=== PATIENT | female | born 1970 | race Caucasian/White ===

== ENCOUNTER 2019-11-22 07:29 | Outpatient (REF) | payer OTHER, SELFPAY ==
[2019-11-22 07:53] LABS: COVID-19 Test Negative (Negative)
== END 2019-11-22 07:30 | disposition home or self-care (01) ==
LOC: HO.LAB 07:29
PROVIDERS: PCP Internal Medicine; Visit Provider Internal Medicine
DX: Z20.828 Contact with and (suspected) exposure to other viral communicable diseases (principal)
CPT/HCPCS: 87635

== ENCOUNTER 2020-05-23 15:40 | Outpatient (REF) | payer OTHER, SELFPAY | END 2020-05-23 15:41 | disposition home or self-care (01) | LOC: HO.LAB 15:40 | PROVIDERS: Visit Provider Internal Medicine | DX: Z20.822 Contact with and (suspected) exposure to COVID-19 (principal) | CPT/HCPCS: C9803; U0003; U0005 ==

== ENCOUNTER → 2021-06-25 14:56 | Outpatient (BNVA) | payer OTHER, SELFPAY | PROVIDERS: PCP Internal Medicine; Visit Provider Nurse Practitioner Family | DX: Z13.89 Encounter for screening for other disorder (principal) ==

== ENCOUNTER 2021-09-04 06:17 | Outpatient (REF) | payer OTHER, SELFPAY ==
--- NOTE | ~2021-09-04 | FL_ITS ---
EXAMINATION: XR FLUOROSCOPY WITH IMAGES CLINICAL INFORMATION: M46.1 - Sacroiliitis, not elsewhere classified COMPARISON: None. TECHNIQUE: Fluoroscopy performed by pain management physician. Fluoroscopy time: 0.5 minutes. Cumulative Dose: 9.05 mGy. DAP: 0.102 mGy-cm2. Images: 4. FINDINGS: There are bilateral spinal needles in the mid left and right sacroiliac joints. FL/FL guidance in treatment room IMPRESSION: Fluoroscopy for pain management procedures.
== END 2021-09-04 06:18 | disposition home or self-care (01) ==
LOC: HO.RADIR 06:17
PROVIDERS: Visit Provider Internal Medicine
DX: M46.1 Sacroiliitis, not elsewhere classified (principal); M53.3 Sacrococcygeal disorders, not elsewhere classified
CPT/HCPCS: 27096; J1040

== ENCOUNTER 2021-11-08 03:41 | Emergency (ER) | payer OTHER, SELFPAY ==
--- NOTE | ~2021-11-08 | XR_ITS ---
EXAMINATION: XR CHEST CLINICAL INFORMATION: Shortness of breath COMPARISON: None TECHNIQUE: 2 views of the chest were obtained. FINDINGS: No significant abnormality is noted involving the heart, lungs, mediastinum, bony thorax or soft tissues. XR/XR chest 2V IMPRESSION: Unremarkable examination.
[2021-11-08 03:56] VITALS: BP 119/77; PULSE 86; RESP 16; TEMP 37.7; O2SAT 99; BMI 35.4
[2021-11-08 04:23] LABS: COVID-19 Test Negative (Negative); IDNOW Serial# 16C4AD1C
[2021-11-08 06:46] VITALS: BP 133/66; PULSE 87; TEMP 36.7; O2SAT 100
--- NOTE | 2021-11-08 08:04 | ED.URI ---
HPI - URI/Sore Throat General Chief Complaint: Upper Respiratory Symptoms Stated Complaint: difficulty breathing Time Seen by Provider: 11/08/21 08:04 History of Present Illness HPI Narrative: Patient is a 51-year-old female presents today with having coughing congestion respiratory symptoms. The history of lupus. Presented today with having symptoms for the last 3 days. Patient is vaccinated for COVID. Feels very congested have a postnasal drip. Patient from home. Never had any history of asthma. Never been intubated in the past. Positive history of sleep apnea on CPAP. Related Data Home Medications Medication Instructions Recorded Confirmed cyclobenzaprine 10 mg tablet 10 mg PO TID PRN 06/25/21 ibuprofen 600 mg tablet 600 mg PO TID PRN 06/25/21 loratadine 10 mg tablet 10 mg PO DAILY 06/25/21 fluticasone propionate 50 1 spray intranasal BID 07/23/21 mcg/actuation nasal spray,suspension Previous Rx's Medication Instructions Recorded gabapentin 300 mg capsule 300 mg PO BID pain 30 days #90 caps 09/18/21 azithromycin 250 mg tablet See Rx Instructions PO .COMPLEX 11/08/21 upper resp infection #6 tabs tamsulosin 0.4 mg capsule (Flomax) 0.4 mg PO DAILY #7 caps 11/08/21 Allergies Allergy/AdvReac Type Severity Reaction Status Date / Time Sulfa (Sulfonamide Allergy Unknown HIVES Verified 09/04/21 08:07 Antibiotics) [SULFA (SULFONAMIDE ANTIBIOTICS)] Review of Systems Review of Systems: Positive coughing congestion upper respiratory symptoms Yes all other systems are reviewed and are negative PMFSH Past Medical History Medical History Family history of colonic polyps History of pulmonary embolism Iron deficiency anemia Menorrhagia Presence of silicone breast implant Rosacea Thyroid nodule Surgical History H/O breast reconstruction H/O tubal ligation History of cholecystectomy History of splenectomy Incisional hernia of anterior abdominal wall without obstruction or gangrene Other specified postprocedural states Social History Social History Advance Directives: Yes Advance Directives Information Provided: Yes Advance Directives on File: No Physical Exam Vital Signs: Vital Signs: Last Vital Signs Temp 98.1 F 11/08/21 06:46 Pulse 87 11/08/21 06:46 Resp 16 11/08/21 03:56 BP 133/66 11/08/21 06:46 Pulse Ox 100 11/08/21 06:46 O2 Del Method 11/08/21 06:46 BMI result Body Mass Index 35.4 Appearance: Alert. Oriented X3. No acute distress. Eyes: Pupils equal, round and reactive to light. ENT: Pharynx normal. Neck: Normal inspection. Neck supple. No lymph nodes noted. No crepitus CVS: Normal heart rate and rhythm. Pulses normal. Normal S1 and S2 Respiratory: No respiratory distress. Breath sounds normal. No Wheezing. No rales Abdomen: Soft and nontender. No rigidity. No distention. good BS x4 Skin: Skin warm and dry. Normal skin color. Normal skin turgor. Extremities: No lower extremity edema. Neurovascular intact to all extremities. No Lacerations. No Rash Neuro: Oriented X 3. No motor deficit. No sensory deficit. Moving all extermities. No slurred speech MDM - URI/Sore Throat MDM Narrative Medical decision making narrative: O2 sats 99% on room air. Lungs are clear. Chest x-ray negative for infiltrate. We will go ahead and start patient on a Z-Jake. Follow up on an outpatient basis. Chuck Heck for coughing. In stable condition. Differential Diagnosis Differential diagnosis: Likely upper respiratory infection Medical Records Attestation: I reviewed the patient's medical records. Lab Data Attestation: I reviewed the patient's lab results. Labs: Lab Results 11/08/21 Range/Units 04:03 COVID-19 ([facility]) Negative (Negative) COVID-19 Clin Com See Note Discharge Plan Discharge Clinical Impression: Upper respiratory infection Patient Disposition: Home, Self-Care Instructions: Upper Respiratory Infection (ED) Prescriptions: New azithromycin 250 mg tablet See Rx Instructions PO .COMPLEX Qty: 6 0RF Rx Instructions: take 500 mg today (day 1), then 250 mg for 4 days (days 2-5) tamsulosin [Flomax] 0.4 mg capsule 0.4 mg PO DAILY Qty: 7 0RF No Action gabapentin 300 mg capsule 300 mg PO BID 30 Days Qty: 90 1RF Rx Instructions: Take 300 mg during the day and 600 mg at bedtime ibuprofen 600 mg tablet 600 mg PO TID PRN cyclobenzaprine 10 mg tablet 10 mg PO TID PRN loratadine 10 mg tablet 10 mg PO DAILY fluticasone propionate 50 mcg/actuation spray,suspension 1 spray intranasal BID Referrals: Ashish Rivero MD [Primary Care Provider] - 2 days
[2021-11-08 08:21] VITALS: BP 126/73; PULSE 86; RESP 16; TEMP 36.4; O2SAT 98
--- NOTE | 2021-11-08 08:26 | PC.NURSE ---
patient a/ox4 . went over discharge instructions as ordered by provider . patient has no questions at this time . patient to follow up with primary care .
== END 2021-11-08 08:27 | disposition home or self-care (01) ==
PROVIDERS: Emergency Provider Emergency Medicine Emergency Medical Services; PCP Internal Medicine Medical Oncology
DX: J06.9 Acute upper respiratory infection, unspecified (principal); R06.02 Shortness of breath; Z20.822 Contact with and (suspected) exposure to COVID-19
CPT/HCPCS: 71046; 87635; 99284

== ENCOUNTER → 2022-03-19 13:32 | Outpatient (BNVA) | payer OTHER, SELFPAY | PROVIDERS: PCP Internal Medicine Medical Oncology; Visit Provider Nurse Practitioner Family | DX: Z13.89 Encounter for screening for other disorder (principal) ==

== ENCOUNTER 2023-03-08 13:45 | Outpatient (AMB) | payer BC, SELFPAY ==
--- NOTE | 2023-03-08 13:47 | MHC.OFFVIS ---
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 Patient was last seen in our office in March, and was prescribed gabapentin 300 mg in am and 600 mg at bedtime. She reports this has been working well for a while but since her back pain has progressed, she does not get complete pain relief. Reports waking up between [id number] at night due to pain. She completed several courses of PT and HEP without pain reduction and no improvement in her functioning. 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 Low back pain radiates into her left buttock and left leg laterally and posteriorly with intermittent heaviness, numbness and tingling in her leg and foot. Lying down and prolonged sitting worsens her pain, whereas standing alleviates her pain. She has mild limping on her left side due to leg pain. Patient reports left leg pain is worse than back pain. Pain is rated at 7/10. She completed lumbar spine MRI on 02/24/23 at [facility] per her PCP and has pending Neurosurgery referral at [facility]. Patient is interested to increase her gabapentin dose while she awaits her neurosurgical evaluation. Denies any fever, abdominal or groin pain, foot drop, bladder or bowel incontinence or saddle anesthesia. PRIOR 03/19/22: Patient presents today for follow up regarding increasing lower back pain with radiation to her lower extremities, worse on the right. Patient was last seen in our office by Dr. Zepeda with short term pain relief after therapeutic bilateral SIJ injections. Patient reports her back pain has been worsening with walking, prolonged sitting, standing, changing positions, or bending forward. She reports radiation of pain into her right lower extremity anteriorly with numbness and tingling in her thighs and feet. Patient reports occasional weakness of right lower extremity and has been having intermittent urine incontinence since last year. Patient cannot pursue formal physical therapy at this time due to significant pain. She is trying to stay active and loose weight but this has been difficulty for her in the constant state of pain. Pain interferes with her daily activities, sleep and social interactions. Denies any fever, abdominal or groin pain, bowel incontinence or saddle anesthesia. PRIOR Dr. Zepeda 09/07/21: Patient is a 51-year-old female presenting for a follow-up after Diagnostic Bilateral SIJ injection. Patient reports 100% pain relief for eight hours following the injection. Unfortunately, she does not report any sustained relief from the steroid portion of the injection. Past Procedures: 09/04/21: Diagnostic Bilateral SIJ Injection with Depo 40 (Each side) ? 100% pain relief for 8 hours. PRIOR: Patient is a pleasant 50 years old female who presents today for an initial evaluation of chronic lower back pain. Patient states her pain started about 10 years ago and has been on and off. She also reports that her pain has been worsening 6 years ago when she slipped on ice and fell. Her pain is mostly axial but also radiates to her lower extremities without specific dermatome distribution with significant numbness and tingling in her both lower legs and feet. Patient states she has lost some sensation in her left lower leg and incisional area after left bunionectomy and has been walking with favoring right side mainly due to increased neuropathy and paresthesia sensations in her LLE. Pain described as dull, sore, hurting, aching, heavy, tiring and exhausting. Her back pain is increased with movements, prolonged standing, walking, and partially relieved with rest, heating pad, and medications. Denies previous back surgery or injections. She has tried physical therapy after the fall 6 years ago without improvement in her symptoms. Patient has been taking ibuprofen, cyclobenzaprine and Tylenol with partial relief. She states the pain is interfering with sleep, activities, mood, quality of life, daily living and she cannot function normally. Patient denies any fever, chills, dyspnea, chest pain, abdominal pain, weight loss,? bladder/bowel dysfunction or saddle anesthesia. She reports intermittent weakness. Patient's exam consistent with bilateral SIJ pain that was easily reproduced with provocative maneuvers. She denies previous SIJ injections. Patient reports she is currently unable to participate in formal PT due to pain but will try gentle SIJ stretching exercising at home. Patient also states she had 3 vaginal deliveries over 20 years ago and her first child weighed 10 lbs at and 2 other between 7 and 8 lbs. Patient also states she has systemic lupus erythematosus that has been under good control without medication. She is in the process of establishing care with new internship. [facility] Medical History Presence of silicone breast implant Systemic lupus erythematosus Rosacea Iron deficiency anemia History of pulmonary embolism Menorrhagia Family history of colonic polyps Thyroid nodule Obstructive sleep apnea treated with continuous positive airway pressure (CPAP) Surgical History Other specified postprocedural states H/O tubal ligation History of cholecystectomy H/O breast reconstruction Incisional hernia of anterior abdominal wall without obstruction or gangrene History of splenectomy Social History Patient Tobacco Use Status: Never used Tobacco Review of Systems Const All systems reviewed & are unremarkable except as noted in HPI and below Physical Exam Vital Signs: Last Vital Signs Pulse 75 03/08/23 13:51 BP 131/72 03/08/23 13:51 Pulse Ox 100 03/08/23 13:51 Oxygen Delivery Method Room Air 03/08/23 13:51 BMI result Body Mass Index 34.4 Const General: cooperative, healthy appearing, no acute distress, alert and awake Nutritional Appearance: well nourished and obese Orientation/consciousness: patient oriented x3 HEENT Head: Yes normal to inspection, Yes normocephalic and Yes atraumatic Ears: hearing grossly normal bilaterally Face and sinus: Yes normal facial exam and Yes face symmetric Eyes General: appearance normal, both eyes and all related structures Neck Neck: Yes normal visual inspection, Yes no lymphadenopathy and No anterior neck swelling Resp Effort & Inspection: normal respiratory effort, able to speak in complete sentences, no audible wheezes, no cough and symmetric chest movement Cardio Jugular venous distension: no JVD Bruits: no carotid bruits Peripheral pulses: radial pulses present, posterior tibial pulses present and dorsalis pedis present GI Inspection: Yes normal to inspection, No distended and Yes obesity Palpation (GI): Soft to palpation General: Yes no CVA tenderness Back/Spine/Pelvis Other: Limited lumbar ROM due to pain. Can flex forward to 60-70 degrees and extend to 5-10 degrees before experiencing pain. Demonstrates 5/5 strength of quadriceps bilaterally as well as flexion/dorsiflexion of bilateral feet against resistance. 2+ pedal pulses bilaterally. Straight leg rise with dorsiflexion positive on the left. Facet loading test positive bilaterally. Mild TTP in the projections of bilateral SIJ. Stinchfield, Aleksandar?s and pelvic compression positive bilaterally. No groin pain with internal or external hip rotations bilaterally. Valsalva maneuver is negative. Back: no CVA tenderness Cervical Spine: cervical ROM normal and No Cervical spine tenderness Thoracic/Lumbar Spine: thoracic and lumbar spine normal to inspection, Lasegue's sign positive on the left and localized, pain with thoraco-lumbar ROM, paraspinal muscle tenderness, thoraco-lumbar ROM limited, thoraco-lumbar spasm, No thoracic spinal tenderness and lumbar spinal tenderness at L4 and at L5 Pelvis: buttock tenderness and sciatic notch tenderness on the left Sacroiliac joints: bilaterally tender to palpation Skin General skin exam: no rashes or lesions noted Neuro General: patient oriented x3, moves all extremities and no focal motor deficits Cranial nerves: Yes CN's II-XII intact bilaterally and Yes Nystagmus not present Cognition (Neuro): normal cognition Gait exam (Neuro): Antalgic gait present and No Assistive device used Motor exam (neuro): no tremor noted and Motor abnormalities not present Extrem General: Yes capillary refill normal, Yes no clubbing, cyanosis or edema and Yes no calf tenderness Psych Appearance: grossly normal and well kempt Mental Status: mental status grossly normal Speech and movement: Normal speech and movement present Affect: normal affect Attitude: cooperative Thought process: Normal thought process present Thought content: Normal thought content present Insight: Good insight present (Psych) Judgement: Good judgement present (Psych) Results Reviewed Results Reviewed: Assessment & Plan Assessment & Plan (1) Lumbar radiculopathy: Code(s): M54.16 - Radiculopathy, lumbar region (2) DJD (degenerative joint disease), lumbosacral: Code(s): M47.817 - Spondylosis without myelopathy or radiculopathy, lumbosacral region (3) Lumbar spinal stenosis: Code(s): M48.061 - Spinal stenosis, lumbar region without neurogenic claudication (4) Lumbar spondylosis: Code(s): M47.816 - Spondylosis without myelopathy or radiculopathy, lumbar region (5) Sacroiliitis: Code(s): M46.1 - Sacroiliitis, not elsewhere classified Plan Refill sent for gabapentin with an increase dose. Continue monitor for any side effects, precautions reviewed with patient. Pending Neurosurgical Evaluation at [facility] after completing lumbar spine MRI on 02/24/23 at [place]. We will send request for MRI report. Scripts sent for lidocaine patch and Medrol Jake for acute left radicular symptoms. All questions and concerns have been answered and patient agreed with the plan. Follow up for medication review and sooner as needed. Medications: New lidocaine 5% 1 patch topical DAILY 30 days 30 ea 0RF pain M47.817 - Spondylosis without myelopathy or radiculopathy, lumbosacral region, M48.061 - Spinal stenosis, lumbar region without neurogenic claudication, M54.16 - Radiculopathy, lumbar region methylprednisolone (Medrol (Jake)) PO PER PKG DIR 21 ea 0RF M47.817 - Spondylosis without myelopathy or radiculopathy, lumbosacral region, M48.061 - Spinal stenosis, lumbar region without neurogenic claudication, M54.16 - Radiculopathy, lumbar region Changed From gabapentin Take 300 mg during the day and 600 mg at bedtime 300 mg PO BID 30 days 90 caps 1RF pain M47.817 - Spondylosis without myelopathy or radiculopathy, lumbosacral region, M48.061 - Spinal stenosis, lumbar region without neurogenic claudication, M54.16 - Radiculopathy, lumbar region To gabapentin 600 mg PO TID 30 days 90 tabs 5RF pain M47.817 - Spondylosis without myelopathy or radiculopathy, lumbosacral region, M48.061 - Spinal stenosis, lumbar region without neurogenic claudication, M54.16 - Radiculopathy, lumbar region Discontinued tamsulosin (Flomax) Discontinued Reason: Patient Completed Course 0.4 mg PO DAILY 7 caps 0RF azithromycin Discontinued Reason: Patient Completed Course take 500 mg today (day 1), then 250 mg for 4 days (days 2-5) 6 tabs 0RF upper resp infection Coding Level of Care Code Est Pt Level 4 (73517) Diagnoses Lumbar radiculopathy M54.16 DJD (degenerative joint disease), lumbosacral M47.817 Lumbar spinal stenosis M48.061 Lumbar spondylosis M47.816 Sacroiliitis M46.1
[2023-03-08 13:51] VITALS: BP 131/72; PULSE 75; O2SAT 100; BMI 34.4
== END 2023-03-08 14:27 | disposition home or self-care (01) ==
PROVIDERS: PCP Internal Medicine; Visit Provider Nurse Practitioner Family
DX: M47.26 Other spondylosis with radiculopathy, lumbar region (principal); M47.817 Spondylosis without myelopathy or radiculopathy, lumbosacral region; M48.061 Spinal stenosis, lumbar region without neurogenic claudication; M46.1 Sacroiliitis, not elsewhere classified
CPT/HCPCS: 99214

== ENCOUNTER → 2023-03-08 13:45 | Outpatient (BNVA) | payer BC, SELFPAY | PROVIDERS: PCP Internal Medicine; Visit Provider Nurse Practitioner Family ==

== ENCOUNTER 2024-07-26 11:39 | Outpatient (AMB) | payer BC, SELFPAY ==
--- NOTE | 2024-07-26 11:41 | A.OFFVIS_ITS ---
Vital Signs 3 07/26/24 11:45 Height 5 ft 9 in Weight 189 lb BMI 27.9 BP 123/76 Blood Pressure Location Rt brachial Position Sitting Respiration 16 Pulse 94 Pulse Source Pulse Oximeter Pulse Oximetry (%) 97 Oxygen Delivery Method Room Air Intake Visit Reasons: Medication Review Online Merchandising Specialist Required: No Accompanied by: Self / Same As Patient Allergies Sulfa (Sulfonamide Antibiotics) (SULFA (SULFONAMIDE ANTIBIOTICS)) Allergy (Unknown, Verified 07/26/24 11:47) HIVES Medication List - Last Reconciled 07/26/24 by CAREY Farmer albuterol sulfate 90 mcg/actuation 2 puffs inhalation Q4H PRN fluticasone propionate 50 mcg/actuation 1 spray intranasal BID gabapentin 600 mg PO TID 90 days ibuprofen 600 mg PO TID PRN lidocaine 5% 1 patch topical DAILY 30 days loratadine 10 mg PO DAILY phentermine 15 mg PO QAM topiramate 50 mg PO BEDTIME umeclidinium-vilanterol 62.5-25 mcg/actuation (Anoro Ellipta) inhalation HPI Comments Details: The patient is a 54-year-old female presenting with chronic back pain radiating to the left leg and neuropathy. She suffers from chronic back pain and was confirmed by an MRI to be due to multilevel degenerative changes, most severe at L4-L5, with moderate to severe bilateral neuroforaminal stenosis and moderate spinal canal stenosis. The patient was referred to a Neurosurgery, Dr. Campbell at [facility] and underwent an EMG, which revealed peripheral neuropathy primarily affecting the left leg and foot, though also present in the right leg. She was deemed non- surgical earlier this year. The patient has a history of systemic lupus erythematosus, diagnosed at age 21, with symptoms potentially dating back to her teenage years. She has experienced anemia in the past and underwent splenectomy which resolved her blood issues. The patient reports pulmonary cysts identified by a Dr. Byrd, Drain Cleaner Plumber at [facility], which have been associated with benign lymphoproliferative disorder. She experiences dyspnea when taking gabapentin, which she has been using for peripheral neuropathy management, and has reduced the dose due to breathing difficulties without notable improvement with dyspnea. Patient is interested to rotate gabapentin to pregabalin (Lyrica) and requests referral to see Dr. Mora, at [facility] for lupus management. She was previously seen at [facility]. The patient has a history of hip replacement surgery on the left side and reports monitoring cysts in the hips. She has been using a cane for mobility due to falls and has been losing weight with phentermine without adverse effects. - Onset: Chronic back pain radiating to the left leg, present since before February - Quality: Neuropathic pain primarily in the left leg and foot, also affecting the right leg - Exacerbating factors: Walking and possibly related to gabapentin use - Relieving factors: None explicitly mentioned - Interference: Pain interferes with sleep and causes crying during sleep due to severity - Affect: Pain causes significant distress, impacting sleep and emotional well- being - Analgesia: Currently using gabapentin, considering switch to pregabalin due to adverse effects - Adverse Effects: Gabapentin causes dyspnea, leading to dose reduction - Activities of Daily Living: Pain affects mobility, requiring cane use and impacting sleep - Aberrant Drug Related Behaviors: None reported PRIOR: Patient presents today for follow up for medication refill and low back pain. Patient was last seen in our office in March, and was prescribed gabapentin 300 mg in am and 600 mg at bedtime. She reports this has been working well for a while but since her back pain has progressed, she does not get complete pain relief. Reports waking up between [id number] at night due to pain. She completed several courses of PT and HEP without pain reduction and no improvement in her functioning. 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 Low back pain radiates into her left buttock and left leg laterally and posteriorly with intermittent heaviness, numbness and tingling in her leg and foot. Lying down and prolonged sitting worsens her pain, whereas standing alleviates her pain. She has mild limping on her left side due to leg pain. Patient reports left leg pain is worse than back pain. Pain is rated at 7/10. She completed lumbar spine MRI on 02/24/[address] [facility] per her PCP and has pending Neurosurgery referral at [facility]. Patient is interested to increase her gabapentin dose while she awaits her neurosurgical evaluation. Denies any fever, abdominal or groin pain, foot drop, bladder or bowel incontinence or saddle anesthesia. PRIOR 03/19/22: Patient presents today for follow up regarding increasing lower back pain with radiation to her lower extremities, worse on the right. Patient was last seen in our office by Dr. Zepeda with short term pain relief after therapeutic bilateral SIJ injections. Patient reports her back pain has been worsening with walking, prolonged sitting, standing, changing positions, or bending forward. She reports radiation of pain into her right lower extremity anteriorly with numbness and tingling in her thighs and feet. Patient reports occasional weakness of right lower extremity and has been having intermittent urine incontinence since last year. Patient cannot pursue formal physical therapy at this time due to significant pain. She is trying to stay active and loose weight but this has been difficulty for her in the constant state of pain. Pain interferes with her daily activities, sleep and social interactions. Denies any fever, abdominal or groin pain, bowel incontinence or saddle anesthesia. PRIOR Dr. Zepeda 09/07/21: Patient is a 51-year-old female presenting for a follow-up after Diagnostic Bilateral SIJ injection. Patient reports 100% pain relief for eight hours following the injection. Unfortunately, she does not report any sustained relief from the steroid portion of the injection. Past Procedures: 09/04/21: Diagnostic Bilateral SIJ Injection with Depo 40 (Each side) ? 100% pain relief for 8 hours. PRIOR: Patient is a pleasant 50 years old female who presents today for an initial evaluation of chronic lower back pain. Patient states her pain started about 10 years ago and has been on and off. She also reports that her pain has been worsening 6 years ago when she slipped on ice and fell. Her pain is mostly axial but also radiates to her lower extremities without specific dermatome distribution with significant numbness and tingling in her both lower legs and feet. Patient states she has lost some sensation in her left lower leg and incisional area after left bunionectomy and has been walking with favoring right side mainly due to increased neuropathy and paresthesia sensations in her LLE. Pain described as dull, sore, hurting, aching, heavy, tiring and exhausting. Her back pain is increased with movements, prolonged standing, walking, and partially relieved with rest, heating pad, and medications. Denies previous back surgery or injections. She has tried physical therapy after the fall 6 years ago without improvement in her symptoms. Patient has been taking ibuprofen, cyclobenzaprine and Tylenol with partial relief. She states the pain is interfering with sleep, activities, mood, quality of life, daily living and she cannot function normally. Patient denies any fever, chills, dyspnea, chest pain, abdominal pain, weight loss,? bladder/bowel dysfunction or saddle anesthesia. She reports intermittent weakness. Patient's exam consistent with bilateral SIJ pain that was easily reproduced with provocative maneuvers. She denies previous SIJ injections. Patient reports she is currently unable to participate in formal PT due to pain but will try gentle SIJ stretching exercising at home. Patient also states she had 3 vaginal deliveries over 20 years ago and her first child weighed 10 lbs at and 2 other between 7 and 8 lbs. Patient also states she has systemic lupus erythematosus that has been under good control without medication. She is in the process of establishing care with new chlorine operator. [facility] Medical History Presence of silicone breast implant Systemic lupus erythematosus Rosacea Iron deficiency anemia History of pulmonary embolism Menorrhagia Family history of colonic polyps Thyroid nodule Obstructive sleep apnea treated with continuous positive airway pressure (CPAP) Surgical History Other specified postprocedural states H/O tubal ligation History of cholecystectomy H/O breast reconstruction Incisional hernia of anterior abdominal wall without obstruction or gangrene History of splenectomy Social History Patient Tobacco Use Status: Never used Tobacco Review of Systems Const Details: - Musculoskeletal: Reports chronic back pain radiating to the left leg - Neurological: Reports neuropathy in the left leg and foot, also affecting the right leg - Respiratory: Reports dyspnea associated with gabapentin use - General: Reports weight loss with phentermine use All systems reviewed & are unremarkable except as noted in HPI and below Physical Exam General: Appears afebrile. Alert and oriented. Mood and affect appropriate. Follows and participates in conversation appropriately. Respiratory effort is unlabored. No cough. Able to transition from sit to stand unassisted. Uses cane with ambulation. Ambulates with bilaterally normal heel strike and toe off, reports BLE weakness, left>right. General: Yes no CVA tenderness Back/Spine/Pelvis Other: Limited lumbar ROM due to pain. Lumbar bending, flexion forward and extension reproduces mild to moderate pain. Demonstrates 5/5 strength of quadriceps bilaterally as well as flexion/dorsiflexion of bilateral feet against resistance. 2+ pedal pulses bilaterally. Straight leg rise with dorsiflexion is negative bilaterally. Facet loading test positive bilaterally. No groin pain with internal or external hip rotations bilaterally. Valsalva maneuver is negative. Back: no CVA tenderness Cervical Spine: cervical ROM normal, cervical muscular tenderness and No Cervical spine tenderness Thoracic/Lumbar Spine: thoracic and lumbar spine normal to inspection, No Thoracic/lumbar spine scar(s), Lasegue's sign negative, straight leg raise negative bilaterally, pain with thoraco-lumbar ROM, paraspinal muscle tenderness, thoraco-lumbar ROM limited, thoraco-lumbar spasm, No thoracic spinal tenderness and lumbar spinal tenderness at L4 and at L5 Sacroiliac joints: bilaterally (+Aleksandar's) tender to palpation Extrem General: Yes capillary refill normal, Yes no clubbing, cyanosis or edema and Yes no calf tenderness Results Reviewed Results Reviewed: Assessment & Plan Assessment & Plan (1) Peripheral neuropathy: Code(s): G62.9 - Polyneuropathy, unspecified Category: Medical (2) Systemic lupus erythematosus: Code(s): M32.9 - Systemic lupus erythematosus, unspecified Category: Medical (3) Peripheral neuropathy: Code(s): G62.9 - Polyneuropathy, unspecified Category: Medical (4) Lumbar radiculopathy: Code(s): M54.16 - Radiculopathy, lumbar region Category: Medical (5) DJD (degenerative joint disease), lumbosacral: Code(s): M47.817 - Spondylosis without myelopathy or radiculopathy, lumbosacral region Category: Medical (6) Lumbar spinal stenosis: Code(s): M48.061 - Spinal stenosis, lumbar region without neurogenic claudication Category: Medical (7) Lumbar spondylosis: Code(s): M47.816 - Spondylosis without myelopathy or radiculopathy, lumbar region Category: Medical (8) Sacroiliitis: Code(s): M46.1 - Sacroiliitis, not elsewhere classified Category: Medical Plan The patient will discontinue gabapentin due to adverse effects, specifically dyspnea, and will initiate pregabalin therapy starting at 200 mg at bedtime, with the potential to increase to twice daily if well tolerated. A referral to the [facility] will be made for further evaluation and management of systemic lupus erythematosus, given the patient's history and current symptoms. The patient is advised to continue using a cane for mobility support and to monitor for any changes in symptoms or new side effects from the medication switch. All questions and concerns have been answered and patient agreed with the plan. Follow up for medication review and sooner as needed. Patient was informed and verbally consented to the use of an ambient scribe for clinic note documentation during this visit. Orders: Referrals 2 Rheumatology Referral G62.9 - Polyneuropathy, unspecified, M32.9 - Systemic lupus erythematosus, unspecified Medications: New 2 pregabalin 200 mg PO BID 60 caps 0RF pain 30 days G62.9 - Polyneuropathy, unspecified Discontinued 2 gabapentin Discontinued Reason: Doctor's Order 600 mg PO TID 90 days 270 tabs 3RF pain M47.817 - Spondylosis without myelopathy or radiculopathy, lumbosacral region, M48.061 - Spinal stenosis, lumbar region without neurogenic claudication, M54.16 - Radiculopathy, lumbar region Patient Instructions: - Stop taking gabapentin and start pregabalin 200 mg at bedtime. - Use a cane for stability and prevent falls. - Monitor for any new symptoms or side effects and report them. - Follow up with the [facility] as referred. Coding Level of Care Code Est Pt Level 4 (70319) Complex EM visit Add On G2211 Diagnoses Peripheral neuropathy G62.9 Systemic lupus erythematosus M32.9 Lumbar radiculopathy M54.16 DJD (degenerative joint disease), lumbosacral M47.817 Lumbar spinal stenosis M48.061 Lumbar spondylosis M47.816 Sacroiliitis M46.1
[2024-07-26 11:45] VITALS: BP 123/76; PULSE 94; RESP 16; O2SAT 97; BMI 27.9
--- OUTSIDE RECORDS SUMMARY | 2024-07-26 13:11 | XMS_ITS | Clinical Summary ---
Author Organization [facility] Address [address] [place] [address] Care Team Providers Care Senior Manager Creative Services Name Role Phone Brandi Barba DO Primary Care P rovider Medications Medication Sig Dispensed Refills Start Date End Date Status ibuprofen (ADVIL,MOTRIN) 800 MG tablet TAKE 1 TAB BY MOUTH EVERY 8 HOURS. USE FOR 5 TO 7 DAYS DURING MENSTRUAL PERIOD 3 10/27/2017 Active Active Problems Problem Noted Date Diagnosed Date Lumbar back pain with radicu lopathy affecting lower extremity 02/02/2018 It band syndrome, right 02/02/2018 Family History Medical History Relation Name Comments Cancer Brother Cancer Father Diabetes Father Heart disease Mother Relation Name Status Comments Brother Father Mother Social History Tobacco Use Types Packs/Day Years Used Date Smoking Tobacco: Never Assessed Sex and Gender Information Value Date Recorded Sex Assigned at Not on file Gender Identity Not on file Sexual Orientation Not on file Job Start Date Occupation Industry Not on file Not on file Not on file Last Filed Vital Signs Vital Sign Reading Time Taken Comments Blood Pressure - - Pulse - - Temperature - - Respiratory Rate - - Oxygen Saturation - - Inhaled Oxygen Concentration - - Weight 108.9 kg (240 lb) 02/02/2018 9:42 AM EST Height 175.3 cm (5' 9 ) 02/02/2018 9:42 AM EST Body Mass Index 35.44 02/02/2018 9:42 AM EST Plan of Treatment Health Maintenance Due Date Last Done Comments Hepatitis B Vaccines (1 of 3 - 3-dose series) 1970 Hepatitis C Screening 1970 COVID-19 Vaccine (#1) 01/21/1971 Depression Screening 1982 Preventative Health Evaluation 1988 DTap / Tdap / Td (1 - Tdap) 1989 Cervical Cancer Screening (P ap Smear) 07/23/1991 Colon Cancer Screening (Colonoscopy) 07/23/2015 Breast Cancer Screening (Mammogram) 2020 Shingrix-Zoster Vaccine (1 of 2) 2020 Influenza Vaccine (Season Ended) 2024 Pneumococcal Vaccine Aged Out No long er eligible based on patient's age to complete this topic RSV Ped < 20 months Aged Out No longe r eligible based on patient's age to complete this topic Care Teams Senior Manager Creative Services Relationship Specialty Start Date End Date Brandi Barba DO PCP - General Office Cleaner 01/05/18
== END 2024-07-26 12:08 | disposition home or self-care (01) ==
LOC: HO.PMC 11:40
PROVIDERS: PCP Internal Medicine; Visit Provider Nurse Practitioner Family
DX: G62.9 Polyneuropathy, unspecified (principal); M32.9 Systemic lupus erythematosus, unspecified; M54.16 Radiculopathy, lumbar region; M47.817 Spondylosis without myelopathy or radiculopathy, lumbosacral region; M48.061 Spinal stenosis, lumbar region without neurogenic claudication; M47.816 Spondylosis without myelopathy or radiculopathy, lumbar region; M46.1 Sacroiliitis, not elsewhere classified
CPT/HCPCS: 99214

== ENCOUNTER → 2024-07-26 11:39 | Outpatient (BNVA) | payer BC, SELFPAY | PROVIDERS: PCP Internal Medicine; Visit Provider Nurse Practitioner Family ==

== ENCOUNTER 2024-08-23 11:21 | Outpatient (AMB) | payer BC, SELFPAY ==
--- NOTE | 2024-08-23 11:22 | MHC.OFFVIS ---
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 She has stopped gabapentin due to side effects, including dyspnea and reports no side effects with pregabalin. Patient reports improvement in neuropathic symptoms. She does notes increased drowsiness during daytime use. Patient prefers to take 100 mg during the day and 200 mg at bedtime or trial 100 mg TID. Patient reports flare up in coccyx pain with remote history of coccyx injury in her youth. She reports since significant weight loss her tailbone pain has been more prominent while sitting on hard surfaces. She has been utilizing cushioning pillows. We discussed ganglion impar block for pain management. Patient prefers to continue support care which have been beneficial for her coccyx symptoms. Denies any recent cough, cold, infection, fever or any other significant changes in medical history since last office visit. Patient reports upcoming evaluation at [facility] in October. PRIOR: The patient is a 54-year-old female presenting with chronic back pain radiating to the left leg and neuropathy. She suffers from chronic back pain and was confirmed by an MRI to be due to multilevel degenerative changes, most severe at L4-L5, with moderate to severe bilateral neuroforaminal stenosis and moderate spinal canal stenosis. The patient was referred to a Neurosurgery, Dr. Campbell at [facility] and underwent an EMG, which revealed peripheral neuropathy primarily affecting the left leg and foot, though also present in the right leg. She was deemed non-surgical earlier this year. The patient has a history of systemic lupus erythematosus, diagnosed at age 21, with symptoms potentially dating back to her teenage years. She has experienced anemia in the past and underwent splenectomy which resolved her blood issues. The patient reports pulmonary cysts identified by a Dr. Byrd, [employer] [facility], which have been associated with benign lymphoproliferative disorder. She experiences dyspnea when taking gabapentin, which she has been using for peripheral neuropathy management, and has reduced the dose due to breathing difficulties without notable improvement with dyspnea. Patient is interested to rotate gabapentin to pregabalin (Lyrica) and requests referral to see Dr. Mora, at [facility] for lupus management. She was previously seen at [facility]. The patient has a history of hip replacement surgery on the left side and reports monitoring cysts in the hips. She has been using a cane for mobility due to falls and has been losing weight with phentermine without adverse effects. - Onset: Chronic back pain radiating to the left leg, present since before February - Quality: Neuropathic pain primarily in the left leg and foot, also affecting the right leg - Exacerbating factors: Walking and possibly related to gabapentin use - Relieving factors: None explicitly mentioned - Interference: Pain interferes with sleep and causes crying during sleep due to severity - Affect: Pain causes significant distress, impacting sleep and emotional well-being - Analgesia: Currently using gabapentin, considering switch to pregabalin due to adverse effects - Adverse Effects: Gabapentin causes dyspnea, leading to dose reduction - Activities of Daily Living: Pain affects mobility, requiring cane use and impacting sleep - Aberrant Drug Related Behaviors: None reported PRIOR: Patient presents today for follow up for medication refill and low back pain. Patient was last seen in our office in March, and was prescribed gabapentin 300 mg in am and 600 mg at bedtime. She reports this has been working well for a while but since her back pain has progressed, she does not get complete pain relief. Reports waking up between [id number] at night due to pain. She completed several courses of PT and HEP without pain reduction and no improvement in her functioning. 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 Low back pain radiates into her left buttock and left leg laterally and posteriorly with intermittent heaviness, numbness and tingling in her leg and foot. Lying down and prolonged sitting worsens her pain, whereas standing alleviates her pain. She has mild limping on her left side due to leg pain. Patient reports left leg pain is worse than back pain. Pain is rated at 7/10. She completed lumbar spine MRI on 02/24/23 at [facility] per her PCP and has pending Neurosurgery referral at [facility]. Patient is interested to increase her gabapentin dose while she awaits her neurosurgical evaluation. Denies any fever, abdominal or groin pain, foot drop, bladder or bowel incontinence or saddle anesthesia. PRIOR 03/19/22: Patient presents today for follow up regarding increasing lower back pain with radiation to her lower extremities, worse on the right. Patient was last seen in our office by Dr. Zepeda with short term pain relief after therapeutic bilateral SIJ injections. Patient reports her back pain has been worsening with walking, prolonged sitting, standing, changing positions, or bending forward. She reports radiation of pain into her right lower extremity anteriorly with numbness and tingling in her thighs and feet. Patient reports occasional weakness of right lower extremity and has been having intermittent urine incontinence since last year. Patient cannot pursue formal physical therapy at this time due to significant pain. She is trying to stay active and loose weight but this has been difficulty for her in the constant state of pain. Pain interferes with her daily activities, sleep and social interactions. Denies any fever, abdominal or groin pain, bowel incontinence or saddle anesthesia. PRIOR Dr. Zepeda 09/07/21: Patient is a 51-year-old female presenting for a follow-up after Diagnostic Bilateral SIJ injection. Patient reports 100% pain relief for eight hours following the injection. Unfortunately, she does not report any sustained relief from the steroid portion of the injection. Past Procedures: 09/04/21: Diagnostic Bilateral SIJ Injection with Depo 40 (Each side) ? 100% pain relief for 8 hours. PRIOR: Patient is a pleasant 50 years old female who presents today for an initial evaluation of chronic lower back pain. Patient states her pain started about 10 years ago and has been on and off. She also reports that her pain has been worsening 6 years ago when she slipped on ice and fell. Her pain is mostly axial but also radiates to her lower extremities without specific dermatome distribution with significant numbness and tingling in her both lower legs and feet. Patient states she has lost some sensation in her left lower leg and incisional area after left bunionectomy and has been walking with favoring right side mainly due to increased neuropathy and paresthesia sensations in her LLE. Pain described as dull, sore, hurting, aching, heavy, tiring and exhausting. Her back pain is increased with movements, prolonged standing, walking, and partially relieved with rest, heating pad, and medications. Denies previous back surgery or injections. She has tried physical therapy after the fall 6 years ago without improvement in her symptoms. Patient has been taking ibuprofen, cyclobenzaprine and Tylenol with partial relief. She states the pain is interfering with sleep, activities, mood, quality of life, daily living and she cannot function normally. Patient denies any fever, chills, dyspnea, chest pain, abdominal pain, weight loss,? bladder/bowel dysfunction or saddle anesthesia. She reports intermittent weakness. Patient's exam consistent with bilateral SIJ pain that was easily reproduced with provocative maneuvers. She denies previous SIJ injections. Patient reports she is currently unable to participate in formal PT due to pain but will try gentle SIJ stretching exercising at home. Patient also states she had 3 vaginal deliveries over 20 years ago and her first child weighed 10 lbs at and 2 other between 7 and 8 lbs. Patient also states she has systemic lupus erythematosus that has been under good control without medication. 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 [facility] Medical History Presence of silicone breast implant Systemic lupus erythematosus Rosacea Iron deficiency anemia History of pulmonary embolism Menorrhagia Family history of colonic polyps Thyroid nodule Obstructive sleep apnea treated with continuous positive airway pressure (CPAP) Surgical History Other specified postprocedural states H/O tubal ligation History of cholecystectomy H/O breast reconstruction Incisional hernia of anterior abdominal wall without obstruction or gangrene History of splenectomy Social History Patient Tobacco Use Status: Never used Tobacco Review of Systems Const All systems reviewed & are unremarkable except as noted in HPI and below Physical Exam Vital Signs: Last Vital Signs Pulse 73 08/23/24 11:25 BP 122/78 08/23/24 11:25 Pulse Ox 97 08/23/24 11:25 Oxygen Delivery Method Room Air 08/23/24 11:25 BMI result Body Mass Index 27.9 General: Appears afebrile. No acute distress. Alert and oriented. Mood and affect appropriate. Follows and participates in conversation appropriately. Respiratory effort is unlabored. No cough. Able to transition from sit to stand unassisted. Uses cane with ambulation. Ambulates with bilaterally normal heel strike and toe off, reports BLE weakness, left>right. General: Yes no CVA tenderness Back/Spine/Pelvis Other: Limited lumbar ROM due to pain. Lumbar bending, flexion forward and extension reproduces mild to moderate pain. Back: no CVA tenderness Cervical Spine: cervical ROM normal, cervical muscular tenderness and No Cervical spine tenderness Thoracic/Lumbar Spine: thoracic and lumbar spine normal to inspection, No Thoracic/lumbar spine scar(s), Lasegue's sign negative, straight leg raise negative bilaterally, pain with thoraco-lumbar ROM, paraspinal muscle tenderness, thoraco-lumbar ROM limited, thoraco-lumbar spasm, No thoracic spinal tenderness and lumbar spinal tenderness at L4 and at L5 Sacroiliac joints: bilaterally (+Aleksandar's) tender to palpation Sacrum: tenderness midline Coccyx: Coccyx tenderness present Extrem General: Yes capillary refill normal, Yes no clubbing, cyanosis or edema and Yes no calf tenderness Results Reviewed Results Reviewed: Assessment & Plan Assessment & Plan (1) Peripheral neuropathy: Code(s): G62.9 - Polyneuropathy, unspecified Category: Medical (2) Systemic lupus erythematosus: Code(s): M32.9 - Systemic lupus erythematosus, unspecified Category: Medical (3) Peripheral neuropathy: Code(s): G62.9 - Polyneuropathy, unspecified Category: Medical (4) Lumbar radiculopathy: Code(s): M54.16 - Radiculopathy, lumbar region Category: Medical (5) DJD (degenerative joint disease), lumbosacral: Code(s): M47.817 - Spondylosis without myelopathy or radiculopathy, lumbosacral region Category: Medical (6) Lumbar spinal stenosis: Code(s): M48.061 - Spinal stenosis, lumbar region without neurogenic claudication Category: Medical (7) Lumbar spondylosis: Code(s): M47.816 - Spondylosis without myelopathy or radiculopathy, lumbar region Category: Medical (8) Sacroiliitis: Code(s): M46.1 - Sacroiliitis, not elsewhere classified Category: Medical Plan The patient will continue pregabalin therapy with adjustment from 200 mg BID to 100 mg TID, taking 200 mg at bedtime and 100 mg during daytime. Patient will continue to monitor for side effects. Pending evaluation [facility] in October for management of chronic symptoms associated with systemic lupus erythematosus. All questions and concerns have been answered and patient agreed with the plan. Follow up for medication review and sooner as needed. Medications: Changed From pregabalin 200 mg PO BID 30 days 60 caps 0RF pain G62.9 - Polyneuropathy, unspecified, M48.061 - Spinal stenosis, lumbar region without neurogenic claudication, M54.16 - Radiculopathy, lumbar region To pregabalin 100 mg PO TID 90 caps 1RF pain 30 days G62.9 - Polyneuropathy, unspecified, M48.061 - Spinal stenosis, lumbar region without neurogenic claudication, M54.16 - Radiculopathy, lumbar region Coding Level of Care Code Est Pt Level 4 (99154) Complex EM visit Add On G2211 Diagnoses Peripheral neuropathy G62.9 Systemic lupus erythematosus M32.9 Lumbar radiculopathy M54.16 DJD (degenerative joint disease), lumbosacral M47.817 Lumbar spinal stenosis M48.061 Lumbar spondylosis M47.816 Sacroiliitis M46.1
[2024-08-23 11:25] VITALS: BP 122/78; PULSE 73; O2SAT 97; BMI 27.9
--- OUTSIDE RECORDS SUMMARY | 2024-08-23 12:10 | XMS_ITS | Clinical Summary ---
Author Organization [facility] Address [address] [place] [address] Care Team Providers Care Casting Cleaner Name Role Phone Brandi Barba DO Primary [...] Vaccine (1 of 2) 2020 Influenza Vaccine (#1) 2024 Pneumococcal Vaccine Aged Out No long er eligible based on patient's age to complete this topic RSV Ped < 20 months Aged Out No longe r eligible based on patient's age to complete this topic Care Teams Casting Cleaner Relationship Specialty Start Date End Date Brandi Barba DO PCP - General Staff Development Nurse 01/05/18
== END 2024-08-23 11:51 | disposition home or self-care (01) ==
LOC: HO.PMC 11:21
PROVIDERS: PCP Internal Medicine; Visit Provider Nurse Practitioner Family
DX: G62.9 Polyneuropathy, unspecified (principal); M32.9 Systemic lupus erythematosus, unspecified; M54.16 Radiculopathy, lumbar region; M47.817 Spondylosis without myelopathy or radiculopathy, lumbosacral region; M48.061 Spinal stenosis, lumbar region without neurogenic claudication; M47.816 Spondylosis without myelopathy or radiculopathy, lumbar region; M46.1 Sacroiliitis, not elsewhere classified
CPT/HCPCS: 99214